=== PATIENT | male | born 1985 | race Caucasian/White ===

== ENCOUNTER 2017-05-06 21:37 | Emergency (ER) | payer MEDICAID ==
[~2017-05-06] VITALS: Ht 182.9 cm; Wt 74.8 kg
[~2017-05-06 21:37] MED LIST: ANTIVERT GENERI25 MG PO; MEDROL 4MG. DOSE4 MG PO; NOMEDS *; TESSALON PERLE100 MG PO; VALIUM5 MG PO; ZITHROMAX Z PA250 MG PO
[2017-05-06 22:00] LABS: HEMOGLOBIN 14.2 g/dL (14.1-18.0); LYMPH # 2.3 K/mm3 (0.7-4.5); LYMPH % 40.7 % (10-50)
--- OUTSIDE RECORDS SUMMARY | 2017-05-06 22:18 | External Medical Summary Rpt ---
Author Author , Organization [employer] Address Unknown Phone Unavailable Care Team Providers Care Gas Utility Worker Name Role Phone [facility], Unavailable Unavailable [facility] JOEL MALDONADO Unavailable Unavailable Purpose Continuity of Care Document - 08-25-2016 through 2016 Problems Code Diagnosis DOS Provider Status J029 ACUTE 08-25-2016 [facility] UNSPECIFIED R05 COUGH 08-25-2016 [facility] Encounters Encounter Start End Date Code Location Performer Type Date OFFICE [address] [facility] JOEL OUTPATIEN 6 6 PHYSICIAN T NEW 20 GROUP MINUTES
--- OUTSIDE RECORDS SUMMARY | 2017-05-06 22:18 | External Medical Summary Rpt ---
Author Author , Organization [employer] Address Unknown Phone Unavailable Care Team Providers Care Broke Beater Name Role Phone [facility], Unavailable Unavailable [facility] JOEL MALDONADO Unavailable Unavailable Purpose Continuity of Care Document - 08-25-2016 through 2016 Problems Code Diagnosis DOS Provider Status J029 ACUTE 08-25-2016 [facility] UNSPECIFIED R05 COUGH 08-25-2016 [facility] Encounters Encounter Start End Date Code Location Performer Type Date OFFICE [address]898 [facility] JOEL OUTPATIEN 6 6 PHYSICIAN T NEW 20 GROUP MINUTES
--- OUTSIDE RECORDS SUMMARY | 2017-05-06 22:19 | External Medical Summary Rpt ---
Author Author SAIRA Carrera, SAIRA [email or web address] Organization [employer] Address Unknown Phone Unavailable Results CBC W Auto Differential panel in Blood Observa Value Referen Units Interpr Notes Date tion ce etation Range Basophils 0 - 0.2 K/MM3 Normal No May 06 informati 2016 9:50 [#/volume on in PM ] in source Blood by data Automated count Basophils 0.1 - 2.0 % Normal No May 06 informati 2016 9:50 leukocyte on in PM s in source Blood by data Automated count Eosinophi 0.0 - 0.4 K/mm3 Normal No May 06 ls informati 2016 9:50 [#/volume on in PM ] in source Blood by data Automated count Eosinophi 0.1 - % Normal No May 06 ls/100 12.0 informati 2016 9:50 leukocyte on in PM s in source Blood by data Automated count Granulocy 1.3 - 8.0 K/mm3 Normal No May 06 kasey informati 2016 9:50 [#/volume on in PM ] in source Blood by data Automated count Granulocy 37.0 - % Normal No May 06 kasey/100 80.0 informati 2016 9:50 leukocyte on in PM s in source Blood by data Automated count Hematocri 42.0 - % Low No May 06 t [Volume 52.0 informati 2016 9:50 on in PM Fraction] source of Blood data Hemoglobi 14.1 - g/dL Normal No May 06 n 18.0 informati 2016 9:50 [Mass/vol on in PM ume] in source Blood data Lymphocyt 0.7 - 4.5 K/mm3 Normal No May 06 es informati 2016 9:50 [#/volume on in PM ] in source Unspecifi data ed specimen by Automated count Lymphocyt 10 - 50 % Normal No May 06 es informati 2016 9:50 [#/volume on in PM ] in source Unspecifi data ed specimen by Automated count Erythrocy 27 - 31.2 pg Normal No May 06 te mean informati 2016 9:50 corpuscul on in PM ar source hemoglobi data n [Entitic mass] Erythrocy 31.8 - g/dl Normal No May 06 te mean 35.4 informati 2016 9:50 corpuscul on in PM ar source hemoglobi data n concentra tion [Mass/vol ume] by Automated count Erythrocy 82.2 - fl Normal No May 06 te mean 97.8 informati 2016 9:50 corpuscul on in PM ar volume source [Entitic data volume] by Automated count Monocytes 0.1 - 1.0 K/mm3 Normal No May 06 informati 2016 9:50 [#/volume on in PM ] in source Blood by data Automated count Monocytes 1.7 - 9.3 % Normal No May 06 /100 informati 2017 9:50 leukocyte on in PM s in source Blood by data Automated count Platelet 7.4 - fl Normal No May 06 mean 10.4 informati 2016 9:50 volume on in PM [Entitic source volume] data in Blood by Automated count Platelets 142 - 424 K/mm3 No No May 06 informati informati 2017 9:50 [#/volume on in on in PM ] in source source Blood data data Erythrocy 4.6 - 6.2 M/mm3 Normal No May 06 kasey informati 2016 9:50 [#/volume on in PM ] in source Amniotic data fluid Erythrocy 11.5 - % Normal No May 06 te 17.5 informati 2016 9:50 distribut on in PM ion width source [Entitic data volume] by Automated count Leukocyte 4.8 - K/MM3 Normal No May 06 s 10.8 informati 2016 9:50 [#/volume on in PM ] in source Blood data
--- OUTSIDE RECORDS SUMMARY | 2017-05-06 22:19 | External Medical Summary Rpt ---
Author Author , Organization [employer] Address Unknown Phone Unavailable Purpose Continuity of Care Document - 08-17-2013 through 2016 Immunization Name Date Route CVX Reacti Commen Provid Is Given on t er Refuse d Rabies Histor H149 No , IM 2012 ical Inform ation - Source Unspec ified Rabies Histor H149 No , IM 2012 ical Inform ation - Source Unspec ified
--- OUTSIDE RECORDS SUMMARY | 2017-05-06 22:19 | External Medical Summary Rpt ---
Author Author , Organization [employer] Address Unknown Phone Unavailable Care Team Providers Care Learning And Development Officer Name Role Phone [facility], Unavailable Unavailable [facility] JOEL MALDONADO Unavailable Unavailable Purpose Continuity of Care Document - 08-25-2016 through 2016 Problems Code Diagnosis DOS Provider Status J029 ACUTE 08-25-2016 [facility] UNSPECIFIED R05 COUGH 08-25-2016 [facility] Encounters Encounter Start End Date Code Location Performer Type Date OFFICE [address] [facility] JOEL OUTPATIEN 6 6 PHYSICIAN T NEW 20 GROUP MINUTES
--- OUTSIDE RECORDS SUMMARY | 2017-05-06 22:19 | External Medical Summary Rpt ---
Author Author SAIRA Carrera, SAIRA [employer] Organization [employer] Address Unknown Phone Unavailable [...]
--- OUTSIDE RECORDS SUMMARY | 2017-05-06 22:19 | External Medical Summary Rpt ---
Author Author , Organization [employer] Address Unknown Phone Unavailable Care Team Providers Care Appeals Reviewer Veteran Name Role Phone [facility], Unavailable Unavailable [facility] JOEL MALDONADO Unavailable Unavailable Purpose Continuity of Care Document - 08-25-2016 through 2016 Problems Code Diagnosis DOS Provider Status J029 ACUTE 08-25-2016 [facility]NG[facility] PH[facility]IAN GROUP UNSPECIFIED R05 COUGH 08-25-2016 [facility] Encounters Encounter Start End Date Code Location Performer Type Date OFFICE 305[address] [facility] JOEL OUTPATIEN 6 6 PHYSICIAN T NEW 20 GROUP MINUTES
--- NOTE | 2017-05-06 22:20 | Emergency Room Report ---
History of Present Illness Time Seen by [id number] Presenting Problem in Triage Pt arrived:Walked Presenting Problem:C/O DIZZINESS AND UNSTEADY X 5 DAYS. REPORT VOMITING 2 DAYS. C/O WEAKNESS AND TIRE. 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 N Clinical Suspician of Infection? N Mental Status: 1 - Regular (Normal Baseline) Sepsis Risk:Low Sepsis Risk Have you (or family members/close friends) recently traveled outside the [place]? N If Yes, where/when: Have you had exposure to infectious disease within the past month? N TB? Other? Specify: Source patient, RN notes reviewed, old records Exam Limitations no limitations Comment he started with verdin occipital and frontal and has fatigue and feels unsteady and weak with dizzyness - no rash/fever/cough or known bite Cardiac Chest Pain Chest pain indicative of cardiac No Timing/Duration this evening Severity moderate ALLERGIES Coded Allergies: No Known Allergies (05/06/17) Home Medications Reported Medications No Home Medications (NO HOME MEDICATIONS) 1 X * ONCE History Medical History General CAD? No Angina: No [place]: No Hypertension? No Hyperlipidemia? No CHF? No DVT? No PE? No COPD? No Asthma? No Anemia? No GERD? No Gastric ulcers? No GI Bleed? No Hernia? No Thyroid Problems? No Hypothyroidism? No CVA? No Seizures? No Diabetes? No Insulin Dependent: No Insulin Pump: No Home FSBS? No Renal Insuffiency? No End Stage Renal Disease? No UTI? No Stones? No BPH? No GB Disease: No Nephritic Syndrome? No Asplenia? No Hepatitis? No Sickle Cell Disease? No Arthritis? No Migraines? No Cataracts? No Glaucoma? No MRSA? No HIV? No TB? No Anxiety? No Depression? No Cancer? No More? No Immunization Hx DT/Tetanus UNKNOWN Surgical Hx Previous Surgery?N Family History Family Hx Diabetes Yes CAD No Hypertension Yes Hyperlipidemia No Cancer Yes TB No Social History Smoking Hx Smoker: Never Smoker Tobacco: Yes Type Snuff Alcohol Alcohol: No Drugs none Review of Systems All Other Systems Reviewed and Negative Constitutional denies fever Eyes denies drainage ENT denies: ear discharge, epistaxis, throat pain. Respiratory denies cough, denies shortness of breath, denies wheezing Cardiovascular denies chest pain, denies syncope Gastrointestinal denies abdominal pain, denies diarrhea, denies vomiting Genitourinary denies: dysuria, frequency, hesitancy, hematuria. Musculoskeletal denies back pain, denies joint pain, denies joint swelling, denies neck pain Skin denies rash Psychiatric/Neurological see HPI, headache, denies seizure Physical Exam Vital Signs Vital Signs Date Time Temp Pulse Resp B/P Pulse O2 O2 Flow FiO2 Ox Delivery Rate 05/06 2336 98.7 51 18 128/88 98 05/06 2322 51 18 128/88 98 05/06 2245 64 18 127/87 98 05/06 2154 18 05/06 2141 98.7 56 18 125/82 98 - WBC >12,000 or <4,000 or 10% bands? 2 or more SIRS Criteria Met? B/P:128/88 MAP:96 Creatinine >2.0? UA output<0.5ml/kg/hr for 2 hrs? Platelet count >100,000? Lactate >2.0mmol/1? INR >1.2 or PTT > than 60 sec? Evidence of Organ Dysfunction? Provider documented clinical suspician of infection? N Sepsis Criteria Count: 0 Sepsis Risk: Low Sepsis Risk General Appearance no apparent distress Eye Exam - bilateral eye PERRL, bilateral eye EOMI Comment no icterus Ear, Nose, Throat normal ENT inspection Neck supple Respiratory Status No: respiratory distress. Lung Sounds bilateral: lungs clear. 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 No Results/Orders Laboratory Tests 05/06/172319: Lyme Disease IgG/IgM Pending, Lyme IgM 41 kDa Band Pending 05/06/172319: Miscellaneous Test Pending, EBV Capsid Antigen Pending, EBV Early Ag IgM Titer Pending, EBV Nuclear Ag IgG Ab Pending, Monoscreen NEGATIVE 05/06/172149: ESR 10 05/06/172149: Sodium 142, Potassium 3.7, Chloride 105, Carbon Dioxide 29, BUN 16, Creatinine 0.9, Estimated Creat Clear 122, Estimated GFR (MDRD) 97, Glucose 88, Calcium 9.5 , Total Bilirubin 0.3, AST 17, ALT 20, Alkaline Phosphatase 78, Creatine Kinase 87, CK-MB (CK-2) Rel Index 0.6, CK and CKMB Interp < 0.5, Troponin I < 0.02, Total Protein 8.3 H, Albumin 4.4, Globulin 3.9 H, Albumin/Globulin Ratio 1.1, WBC 5.7, RBC 4.83, Hgb 14.2, Hct 41.5 L, MCV 85.9, RDW 13.1, Plt Count 190, MPV 7.5, Gran % 50.3, Gran # 2.9, Lymphocytes % 40.7, Monocytes % 5.5, Eosinophils % 3.2, Basophils % 0.4, Lymphocytes # 2.3, Monocytes # 0.3, Eosinophils # 0.2, Basophils # 0.0, PUBS MCHC 34.3, MCH 29.4 Current Medication Orders Sig/Leeanne Start time Last Medication Dose Route Stop Time Status Admin Ketorolac 30 MG ONCE ONE 05/06 2200 DC 05/06 Tromethamine IV 05/06 Sodium Chloride 1,000 ML .Q1H1M 05/06 2200 DC 05/06 IV 05/06 2300 215 Sodium Chloride 10 ML PRN PRN 05/06 2200 AC IV 05/07 2147 Sodium Chloride 10 ML PRN PRN 05/06 2200 AC IV 05/07 2148 Ketorolac 0 .STK-MED ONE 05/06 2150 DC Tromethamine .ROUTE Sodium Chloride 1,000 ML .STK-MED ONE 05/06 2143 DC IV Orders Procedure Date/time Status DIET-NOTHING BY MOUTH 05/07 B Active MONO SCREEN 05/06 2310 Active LYME DISEASE AB 05/06 2310 Active TERENCE-DAVIS VIRUS GEOLOGICAL TECHNICAL OFFICER 05/06 2310 Active SED RATE 05/06 2221 Complete C-REACTIVE PROTEIN 05/[address] HEAD W/O CONTRAST 05/06 2150 Active ELECTROCARDIOGRAM REQUEST 05/[address] HEAD REQ 05/06 2148 Complete CHEST(2 VIEWS-NOT PORTABLE) 05/06 2148 Active IV SALINE LOCK 05/06 2148 Active CBC WITH AUTO DIFF 05/06 2148 Complete CARDIAC ENZYMES 05/06 2148 Complete CHEM 12 PROFILE 05/06 2148 Complete Departure Departure Time of Disposition 2332 Disposition DC Home or Self Care(routine) Clinical Impression Primary Impression: Headache Qualifiers: Headache type: unspecified Headache chronicity pattern: acute headache Intractability: not intractable Qualified Code: R51 - Headache Secondary Impressions: Dizziness Condition STABLE Referrals NO REFERRAL (Family) Patient Instructions DI for Dizziness-Nonvertigo Additional Instructions see pcp for follow up Discharge Counseling Counseled pt/family regarding diagnosis, test results, follow up needs ED Critical Care Critical Care No at [id number]
[2017-05-06 22:26] LABS: BUN 16 mg/dL (7-18)
[2017-05-06 22:29] LABS: GFR (ESTIMATED) 97 ML/MIN (>60)
[2017-05-06 23:36] VITALS: BP 128/88
--- NOTE | 2017-05-07 04:33 | RADIOLOGY REPORT PS360 ---
CHEST(2 VIEWS-NOT PORTABLE) HISTORY: C/O DIZZINESS ORDERING PHYSICIAN: Russell Ugalde MD PATIENT AGE: 32 years COMPARISON: 08/10/2015 FINDINGS: The cardiomediastinal silhouette and pulmonary vascularity are within normal limits. The lungs are clear without infiltrates, suspicious nodules, or pleural effusions. No acute bony abnormalities. IMPRESSION: Negative chest, no acute finding
--- NOTE | 2017-05-07 05:32 | RADIOLOGY REPORT PS360 ---
CT HEAD W/O CONTRAST HISTORY: DIZZINESS ORDERING PHYSICIAN: Russell Ugalde MD PATIENT AGE: 32 years COMPARISON: None TECHNIQUE: Axial images obtained without contrast. Brain and bone windows reviewed. FINDINGS: No midline shift, mass effect, intracranial hemorrhage, hydrocephalus, or extra-axial fluid collection is evident. There is a well-circumscribed oval area of decreased attenuation involving the right supraorbital region anteriorly measuring 14 x 8 mm consistent with a lipoma with a resultant concave defect of the anterior aspect of the supraorbital region.. This does not involve the orbit itself No mastoid effusion. The visualized paranasal sinuses are unremarkable. IMPRESSION: 1. No acute intracranial pathology. 2. Right supraorbital lipoma.
[2017-05-08 12:37] LABS: EBV Ab VCA, IgM <36.0 U/mL (0.0-35.9); EBV Nuclear Antigen Ab, IgG 30.9 U/mL (0.0-17.9)
== END 2017-05-06 23:41 | disposition home or self-care (01) ==
LOC: ER 21:37
PROVIDERS: Emergency Medicine
DX: R51 Headache (principal); R42 Dizziness and giddiness

== ENCOUNTER 2017-07-23 15:35 | Emergency (ER) | payer MEDICAID ==
[~2017-07-23] VITALS: Ht 182.9 cm; Wt 68.0 kg
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
[2017-07-23 15:57] VITALS: BP 149/100
== END 2017-07-23 15:57 | disposition home or self-care (01) ==
LOC: ER 15:35
DX: Z02.89 Encounter for other administrative examinations (principal); Z72.0 Tobacco use